=== PATIENT | female | born 1955 | race Caucasian/White ===

== ENCOUNTER 2016-10-25 12:48 | Outpatient (CLI) ==
[2013-08-09 00:02] VITALS: BMI 39.4
[2016-10-25 13:06] LABS: BASOPHILS % (AUTO) 0.8 % (0.0-3.0); EOSINOPHILS # (AUTO) 0.2 K/ul (0.0-0.7); HEMATOCRIT 38.4 % (37.0-47.0); HEMOGLOBIN 13.8 g/dl (12.0-16.0); IMMATURE GRANULOCYTE % (AUTO) 0.2 % (0.0-5.0); LYMPHOCYTES # (AUTO) 2.1 K/uL (0.60-3.4); LYMPHOCYTES % (AUTO) 40.8 (10.0-50.0); MEAN CORPUSCULAR HEMOGLOBIN 29.7 pg (27.0-31.0); MEAN CORPUSCULAR HGB CONC 35.9 (31.8-35.4); MEAN CORPUSCULAR VOLUME 82.6 fl (81.0-99.0); MONOCYTES # (AUTO) 0.8 K/uL (0.4-2.0); NEUTROPHILS % (AUTO) 40.2; PLATELET COUNT 255 10^3/uL (140-440); RED BLOOD COUNT 4.65 10^6/ul (4.20-5.40); WHITE BLOOD COUNT 5.07 K/ul (4.6-10.2)
[2016-10-25 13:41] LABS: ALBUMIN 3.8 g/dL (3.4-5.0); ALBUMIN/GLOBULIN RATIO 1.03; BILIRUBIN,TOTAL 0.58 mg/dL (0.00-1.20); CALCIUM 9.9 mg/dL (8.2-10.2); CHOL/HDL RATIO 8.3 (4.5-5.5); CREATININE 0.8 mg/dL (0.60-1.30); TOTAL PROTEIN 7.5 g/dL (6.4-8.2)
== END 2016-10-25 12:49 | disposition home or self-care (01) ==
LOC: LAB 12:48
PROVIDERS: ATTEND Nurse Practitioner Family
DX: L03.115 Cellulitis of right lower limb (principal); E78.1 Pure hyperglyceridemia; I10 Essential (primary) hypertension
CPT/HCPCS: 36415; 80053; 80061; 84443; 85025

== ENCOUNTER 2017-01-18 11:54 | Outpatient (CLI) ==
[2013-08-09 00:02] VITALS: BMI 39.4
== END 2017-01-18 11:55 | disposition home or self-care (01) ==
LOC: LAB 11:54
PROVIDERS: ATTEND Nurse Practitioner Family
DX: J02.9 Acute pharyngitis, unspecified (principal)
CPT/HCPCS: 87651; 87880

== ENCOUNTER 2017-01-21 13:41 | Outpatient (CLI) ==
[2013-08-09 00:02] VITALS: BMI 39.4
--- NOTE | 2017-01-21 14:39 | CT ---
EXAM: CT of the sinuses without contrast History: Chronic sinusitis. Technique: Multiplanar CT images through the sinuses were obtained without the administration of IV contrast Findings: The orbits are intact. Surrounding soft tissues demonstrate no grossly acute findings. The visualized intracranial contents demonstrate no grossly acute findings. No acute fracture or dis location. Minimal mucosal thickening of the inferior right maxillary sinus. Paranasal sinuses are otherwise clear. Mastoid air cells are clear. Nasal septum is bowed to the right. Bilateral ostio meatal units are not occluded. Impression: Minimal right maxillary sinus mucosal thickening. The paranasal sinuses are otherwise clear.
== END 2017-01-21 13:42 | disposition home or self-care (01) ==
LOC: RAD 13:41
PROVIDERS: ATTEND Nurse Practitioner Family
DX: J32.9 Chronic sinusitis, unspecified (principal)

== ENCOUNTER 2017-04-29 09:50 | Outpatient (CLI) ==
[2013-08-09 00:02] VITALS: BMI 39.4
[2017-04-29 10:10] LABS: BASOPHILS # (AUTO) 0.1 K/uL (0-0.2); BASOPHILS % (AUTO) 0.9 % (0.0-3.0); EOSINOPHILS # (AUTO) 0.2 K/ul (0.0-0.7); EOSINOPHILS % (AUTO) 3.4 % (0.0-7.0); HEMATOCRIT 38.4 % (37.0-47.0); HEMOGLOBIN 13.8 g/dl (12.0-16.0); IMMATURE GRANULOCYTE % (AUTO) 0.4 % (0.0-5.0); LYMPHOCYTES # (AUTO) 2.7 K/uL (0.60-3.4); LYMPHOCYTES % (AUTO) 49.5 (10.0-50.0); MEAN CORPUSCULAR HEMOGLOBIN 30.1 pg (27.0-31.0); MEAN CORPUSCULAR HGB CONC 35.9 (31.8-35.4); MEAN CORPUSCULAR VOLUME 83.7 fl (81.0-99.0); MONOCYTES # (AUTO) 0.5 K/uL (0.4-2.0); MONOCYTES % (AUTO) 9.3 (0-10); NEUTROPHILS % (AUTO) 36.5; PLATELET COUNT 255 10^3/uL (140-440); RED BLOOD COUNT 4.59 10^6/ul (4.20-5.40); WHITE BLOOD COUNT 5.35 K/ul (4.6-10.2)
[2017-04-29 10:53] LABS: ALBUMIN 3.7 g/dL (3.4-5.0); ALBUMIN/GLOBULIN RATIO 1.12; ANION GAP 12.4; BILIRUBIN,TOTAL 0.34 mg/dL (0.00-1.20); BUN/CREATININE RATIO 20.51; CALCIUM 9.5 mg/dL (8.2-10.2); CHOL/HDL RATIO 7.6 (4.5-5.5); CREATININE 0.78 mg/dL (0.60-1.30); POTASSIUM 4.4 mmol/L (3.5-5.10)
== END 2017-04-29 09:51 | disposition home or self-care (01) ==
LOC: LAB 09:50
PROVIDERS: ATTEND Nurse Practitioner Family
DX: E55.9 Vitamin D deficiency, unspecified (principal); E78.1 Pure hyperglyceridemia; I10 Essential (primary) hypertension
CPT/HCPCS: 36415; 80053; 80061; 82306; 85025

== ENCOUNTER 2017-10-28 09:09 | Outpatient (CLI) ==
[2013-08-09 00:02] VITALS: BMI 39.4
--- NOTE | 2017-10-28 09:44 | DI ---
Exam: Five x-rays of the lumbar spine. Comparison: MRI 03/11/2014. Reason for exam: Back pain. FINDINGS: No acute fracture or listhesis. The vertebral body heights are relatively well maintained . There is multilevel degenerative disease with intervertebral body disc space height narrowing and osteophyte formation with facet hypertrophy. There is relative preservation of the lumbar lordotic cu rve. The partially imaged left sided hip arthroplasty. There is mild levoscoliosis of the thoracolum bar spine Impression: Multilevel degenerative disease without evidence of acute fracture or listhesis
== END 2017-10-28 09:10 | disposition home or self-care (01) ==
LOC: RAD 09:09
PROVIDERS: ATTEND Nurse Practitioner Family
DX: E78.1 Pure hyperglyceridemia (principal); I10 Essential (primary) hypertension; E55.9 Vitamin D deficiency, unspecified; M51.16 Intervertebral disc disorders with radiculopathy, lumbar region; M51.17 Intervertebral disc disorders with radiculopathy, lumbosacral region; M47.816 Spondylosis without myelopathy or radiculopathy, lumbar region; M47.817 Spondylosis without myelopathy or radiculopathy, lumbosacral region; M51.36 Other intervertebral disc degeneration, lumbar region; M51.37 Other intervertebral disc degeneration, lumbosacral region
CPT/HCPCS: 36415; 80053; 80061; 82306; 84443; 85025

== ENCOUNTER 2017-11-05 07:52 | Outpatient (CLI) ==
[2013-08-09 00:02] VITALS: BMI 39.4
--- NOTE | 2017-11-05 09:48 | CT ---
EXAM: CT right hand with contrast. HISTORY: Unspecified disorder of synovium and tendon. Outpatient.. TECHNIQUE: Transaxial CT performed through the level of the right hand 2 mm slice thickness after in travenous contrast administration. Orthogonal coronal and sagittal reformatted imaging obtained. Co mparison none. FINDINGS: The alignment of the right hand shows no dislocation. Osteopenia. Interphalangeal joint osteoarthrosis. No bone erosions. Some minimal osteoarthrosis involving the metacarpal phalangeal j oints as well. Mild osteoarthrosis first carpometacarpal joint. More pronounced osteoarthrosis scap hoid trapezium trapezoid articulation. Radiocarpal joint osteoarthrosis. Intraosseous cyst/ganglion formation lunate as well as scaphoid and capitate. Ununited fracture ulnar styloid. Otherwise no a cute fracture. Question radiocarpal joint effusion. Given the attenuation there may be superimposed synovitis as we ll. Wrist held in pronation with tendinosis/tenosynovitis and suspicion for high-grade partial teari ng of the extensor carpi ulnaris tendon. No abnormal soft tissue gas.. Specifically a marker was p laced over the palmar soft tissues at the third metacarpal phalangeal joint level. Trace third metac arpal phalangeal joint effusion may be present. The flexor digitorum tendons of the third digit basilia sly intact without full-thickness disruption. Questionable focal tenosynovitis. There is additional ly some suspected fluid signal intensity/edema within the carpal tunnel and along its exit. IMPRESSION: Osteopenia. Osteoarthrosis as described. No definitive bone erosions. Ununited fracture ulnar styloid suspected. No acute fracture identified. Question radiocarpal joint effusion. Question superimposed synovitis.. Suspected fluid signal inten sity/edema within the carpal tunnel its along its exit. This may reflect flexor tenosynovitis. Wrist held in pronation with tendinosis/tenosynovitis and suspected high-grade partial tearing of the extensor carpi ulnaris tendon. Correlate clinically. Marker placed over the palmar soft tissues at the third metacarpal phalangeal joint level. Trace thi rd metacarpal phalangeal joint effusion. Third flexor digitorum tendons grossly intact without full- thickness disruption/tendon bow stringing.. There may be underlying focal tenosynovitis. Dedicated MRI would be helpful for further characterization if clinically feasible and indicated.
--- NOTE | 2017-11-06 08:16 | MRI ---
EXAM: Lumbar spine MRI without contrast. HISTORY: Lumbago with left sciatica. COMPARISON: Lumbar spine radiographs 10/28/2017 and lumbar spine MRI 03/11/2014. TECHNIQUE: Multiplanar, multisequence MR images were acquired of the lumbar spine without contrast. FINDINGS: Five non-rib bearing lumbar vertebra are present. There is stable mild 14 degrees thoraco lumbar levoscoliosis centered at T12-L1. There is minor chronic anterior wedging of T11 and a mild c hronic right anterior wedge compression deformity of L1 with irregular concavity of the superior endp late and a chronic Schmorl's node unchanged from previously. The lumbar vertebra are normal in heigh t and intrinsic bone marrow signal. Benign intraosseous hemangiomas are present at T12 and L2. Ther e is a mild diffuse disc osteophyte complex at L2-3 with stable irregularity of the left anterolatera l endplates and modic type two endplate changes and new irregular concavity of the right lateral endp lates greatest involving the right lateral superior endplate of L3 with modic type 1 endplate changes . Conus medullaris ends at L1-2 and has normal signal intensity. 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 There is an elongated right lobe of the liver that measures at least 18 cm in length. The partially visualized spleen and left kidney are unremarkable. A simple lower pole right renal cyst is present. There are no paravertebral masses. There is bilateral sacroiliac osteoarthrosis. T11-12: There is a minor diffuse disc osteophyte complex that is asymmetric to the left which minima lly indents the right cord and effaces the left lateral recess. Left hypertrophic facet arthropathy is present and there is mild bilateral foraminal stenosis. T12-L1: There is a minor spondylotic disc bulge that is asymmetric to the right with small right far lateral endplate osteophytes. There is no central canal stenosis or foraminal stenosis. L1-2: There is a minor disc bulge that is considered physiologic. There is no central canal stenosi s or foraminal stenosis. L2-3: There is a mild disc bulge and bilateral facet arthropathy and ligamentum flavum hypertrophy. This causes minor right and mild left neural foraminal stenosis. L3-4: There is a minor disc bulge with marginal osteophytes that is asymmetric to the left. Compared to previously, mild bright STIR signal edema along the left anterolateral endplates has resolved and there are now modic type 2 endplate changes. Mild bilateral facet and ligamentum flavum hypertrophy is present which produces triangulation of the thecal sac and mild left neural foraminal stenosis. L4-5: There is a mild disc bulge and moderate left greater than right hypertrophic facet arthropathy and bilateral ligamentum flavum hypertrophy. There is irregularity of the articular surfaces of bot h facet joints, degenerative cysts and bilateral facet effusions, greater on the left. These finding s have progressed compared to previously and cause mild to moderate central canal stenosis and mild t o moderate bilateral foraminal stenosis. AP diameter of the thecal sac is 7 mm. The bulging disc enc roaches on both L4 nerves exiting the neural foramina, greater on the left. L5-S1: There is a minor disc bulge and moderate bilateral facet arthropathy with ankylosis of both fa cet joints. There is minor left greater than right foraminal stenosis. IMPRESSION: 1. Mild lumbar degenerative spondylosis which has mildly progressed compared to the 03/11/2014 MRI. 2. Mild discogenic disease L2-3 with new modic type 1 right lateral endplate changes. 3. Moderate bilateral hypertrophic facet arthropathy L4-5, greater on the left which has progressed compared to previously and there are now bilateral facet effusions, greater on the lef these findings may be due to accelerated degenerative changes due to increased stress or motion or chronic facet sy novitis. 4. No change ankylosis bilateral L5-S1 facet joints. 5. Stable mild chronic right anterior wedge compression deformity T12. 6. Bilateral sacroiliac osteoarthrosis.
== END 2017-11-05 07:53 | disposition home or self-care (01) ==
LOC: RAD 07:52
PROVIDERS: ATTEND Nurse Practitioner Family
DX: M67.90 Unspecified disorder of synovium and tendon, unspecified site (principal); M54.42 Lumbago with sciatica, left side; G89.29 Other chronic pain

== ENCOUNTER 2018-02-04 10:18 | Outpatient (CLI) | payer OTHER ==
[2013-08-09 00:02] VITALS: BMI 39.4
== END 2018-02-04 10:19 | disposition home or self-care (01) ==
LOC: RHC-LAB 10:18
PROVIDERS: ATTEND Nurse Practitioner Family
DX: R25.2 Cramp and spasm (principal)
CPT/HCPCS: 36415; 84132

== ENCOUNTER 2018-04-01 12:39 | Outpatient (CLI) ==
[2013-08-09 00:02] VITALS: BMI 39.4
--- NOTE | 2018-04-01 14:57 | MRI ---
EXAM: MRI of the right knee without contrast COMPARISON: Right knee radiographs 06/27/2016. HISTORY: Right knee pain medially. TECHNIQUE: Multiplanar noncontrast MR images of the right knee were acquired using a 1.2 Ester magne t. Several sequences are moderately limited by patient motion artifact, most pronounced on the sagitt al proton density sequence. FINDINGS: There is intrasubstance degeneration of the lateral meniscus without a surfacing tear. Th ere is intrasubstance degeneration of the medial meniscus with overall diminished size of the meniscu s with irregularity the free edge consistent with a degenerative type tear with a radial component in volving the free edge extending peripherally at that level. Extrusion of the body related to loss of hoop containment. There is a 3.2 x 2.3 x 1.5 cm multi septated T2 hyperintense lesion extending siddhartha ng the posterior aspect of the joint capsule into the popliteal fossa with component extending deep v ia a rent in the posterior joint capsule and along the margin of the posterior cruciate ligament favo ring a complex ganglion/synovial cyst. A component extends along the myotendinous junction of the po pliteus. Intermediate signal within the substance of the anterior cruciate ligament suggesting scarring relate d to a chronic sprain. Intact fibers identified. Spurring of the tibial spines anteriorly. The pos terior cruciate ligament is intact. Chronic sprain with scarring of the medial collateral ligament. The lateral collateral ligament complex and posterolateral corner ligaments are intact. Mild patell ar/quadriceps tendinosis and enthesopathy. No significant subluxation of the patella. Subcutaneous edema anteriorly. There are marginal osteophytes in all three compartments of the knee with medial and lateral notch os teophytes. Full-thickness cartilage defects along the patella with subchondral cystic change. Mild thinning of the cartilage of the trochlear groove. Moderate to severe thinning of the cartilage in t he medial compartment. Thinning and ulceration of the cartilage along the medial weightbearing surfa ce of the lateral tibial plateau measuring 0.6 cm extent. No evidence of an acute fracture or osteom yelitis. Minimal joint effusion. No popliteal cyst. IMPRESSION: 1. Tricompartmental osteoarthrosis with most severe changes involving the medial and patellofemoral compartments. 2. Minimal joint effusion. Complex multi septated T2 hyperintense lesion posteriorly within the pop liteal fossa suggesting a ganglion/synovial cyst with suspected articular communication via a rent in the posterior joint capsule. 3. Chronic sprains with scarring of the anterior cruciate and medial collateral ligaments. 4. Tear of the posterior horn/root of the medial meniscus as described. 5. Patellar/quadriceps tendinosis and enthesopathy. Subcutaneous edema.
== END 2018-04-01 12:40 | disposition home or self-care (01) ==
LOC: RAD 12:39
PROVIDERS: ATTEND Nurse Practitioner Family
DX: M25.561 Pain in right knee (principal)

== ENCOUNTER 2018-05-05 08:29 | Outpatient (CLI) ==
[2013-08-09 00:02] VITALS: BMI 39.4
== END 2018-05-05 08:30 | disposition home or self-care (01) ==
LOC: LAB 08:29
PROVIDERS: ATTEND Nurse Practitioner Family
DX: E55.9 Vitamin D deficiency, unspecified (principal); E78.1 Pure hyperglyceridemia; I10 Essential (primary) hypertension
CPT/HCPCS: 36415; 80053; 80061; 82306; 85025

== ENCOUNTER 2018-05-22 13:00 | Outpatient (RCR) ==
[2013-08-09 00:02] VITALS: BMI 39.4
--- NOTE | 2018-05-19 15:01 | RS.OPPTEV2 ---
Date of Note: 05/19/18 Visit #: 1 Date of Evaluation: 05/19/18 Payer Source: Medicaid Surgery Performed?: Yes Date of Procedure: 05/06/18 Treatment Diagnosis: Right knee pain, stiffness, s/p right knee partial medial meniscectomy History of Condition/Mechanism of Injury:: Patient reports right knee pain began in February when she was working in her garden. States she stood up and lost her balance and did a "drunk dance', but did not fall. Prior Level of Function.....Patient was independent with: ADL's, Self Care, Caregiving, Ambulation/Mobility, Community Integration/Access Functional Limitations: ADL's, Pushing, Pulling, Carrying, Sitting, Standing, Bending, Squatting, Ambulation, Community Access/Integration Current Subjective/complaints:: Patient reports right knee hurts. States she has been icing the knee and propping it up as advised by the doctor's office. States she has not used an assistive device for ambulation. States she has pain with all weight bearing. She has a few steps to get into her home, with a rail. Reports having difficulty with the stairs. She has taken pain medication today. She wears an LORIE wrap type bandage at times for support. Reports her right ankle is always swollen, due to an ankle injury years ago. States she has to walk her dogs outside, down the alley and back to her home. States this is partially up an incline. By the time she is back from walking the dogs, her knee pain is significant. Treatment Side (optional): Right *Precautions: Right knee partial medial meniscectomy Medical History Medical History: Arthritis Surgical History: Hip Replacement Smoking Status: Former smoker Hx Home Medications: gabapentin,zoloft, linzess, lopid, triamterene Patient's Goals: Her goal is to get relief of right knee pain. Pain Assessment - Pain Description Pain Location: right knee Pain Description: "it hurts" Current Pain Intensity: not quantified Worst Pain Intensity: 9/10 Functional Outcome Measure LE Functional Scale: 20 (20/80=75% impairment) - G Codes & Severity Modifier G Codes & Modifier: Mobility current CL. Mobility goal CJ Source of G Code score: LE functional scale Observation - Observation Inspection: right knee presents with two small incisions, one on each side of the patella tendon. No sutures are in place. No drainage, bruising, or redness. Posture: Forward Head, Rounded Shoulders, Increased Lumbar Lordosis, Scoliosis Gait - Gait Pattern Gait Comments: Patient ambulates without an assistive device, with decreased stance on the right LE. Demonstrates decreased right hip and knee flexion during swing phase. - Left Knee ROM Left Knee Extension: -3 degrees from full extension Left Knee Flexion: 125 (degrees AROM) - Right Knee ROM Right Knee Extension: -6 degrees from full extension Right Knee Flexion: 95 (degrees AROM) Knee ROM Limitations: Soft Tissue Tightness, Pain - Left Knee Strength Left Knee Extension: 5 Normal Left Knee Flexion: 5 Normal Comments: Left hip strength 5/5. - Right Knee Strength Right Knee Extension: 4+ Good + Right Knee Flexion: 4+ Good + Comments: Right hip strength 5/5. Palpation Comments:: Patient with reports of tenderness over the distal quadriceps tendon. Also reports tenderness in the posterior/medial aspect of the right knee. Sensation - Sensation Comments: Reports impaired sensation due to nerve damage years ago. Additional Comments: Additional Comments: Right SLR in supine to 45 degrees, left to 50-55 degrees. Bilateral ankle DF to neutral with knee extended. Interventions - Exercise/Activities/Manual Therapy Exercises/Activities: Patient instructed in HEP for ROM of the right knee: heel sides, standing HS curls, and heelcord stretch. Patient does not have a left hand, so she performed the stretch with a black theraband tied in a loop. Also advised her to try a belt fastened in a loop. Patient received ROM to the right knee into flexion and extension. Total minutes of Exercise: 10 mins Manual Therapy: NA HOME EXERCISE PROGRAM: heel sides, standing HS curls, and heelcord stretch. - Charges Timed Code Treatment Minutes: 10 mins Total Treatment Time: 35 mins Procedures billed for this date of service:: EVAL Low EVALUATION COMPLEXITY LEVEL EVALUATION COMPLEXITY LEVEL: HISTORY: Low, EXAM OF BODY SYSTEMS: Low, CLINICAL PRESENTATION: Low, CLINICAL DECISION MAKING: Low Assessment Assessment: Ms. Ortega presents to therapy 13 days s/p right knee arthroscopic partial medial meniscectomy. She demonstrates limited right knee AROM, and tight posterior LE muscles. She reports pain with all weight bearing, including standing to perform ADL's and ambulation. She exhibits good potential to benefit from modalities to reduce pain and exercises to regain functional right knee AROM. Patient Education: Education of diagnosis, Body/Joint mechanics, Home Exercise Program, Home Safety, Activity Modification, Education of Plan of Care Rehab Potential: Good Short Term Goals Goal #1: Patient independent and compliant with HEP. Goal to be met by: 06/02/18 Goal #2: Right knee AROM -2 to 110 degrees flexion. Goal to be met by: 06/02/18 Goal #3: Right SLR equal to the left. Goal to be met by: 06/02/18 [facility] Goals Goal #1: Patient knows HEP and to continue ex's to maintain functional level at D/C. Goal to be met by: 06/23/18 Goal #2: Score on LE functional scale improved to 39% impairment or less. Goal to be met by: 06/23/18 Goal #3: Patient able to ambulate functional community distances w/ min. knee pain. Goal to be met by: 06/23/18 Goal #4: Patient able to work in her garden with minimal knee discomfort. Goal to be met by: 06/23/18 Plan - Treatment to be Provided Procedures: Therapeutic Exercises, Therapeutic Activity, Manual Therapy, Patient Education Modalities: Electrical Stimulation, Cryotherapy, Hot Packs - Treatment Plan Frequency: 2 X week Duration: 4 weeks ORDER # VISITS AND/OR THROUGH DATE: 06/23/18 - Treatment Code (1) Knee pain Code(s): M25.569 - PAIN IN UNSPECIFIED KNEE Qualifiers: Chronicity: acute Laterality: right Qualified Code(s): M25.561 - Pain in right knee (2) Knee stiffness Qualifiers: Laterality: right Qualified Code(s): M25.661 - Stiffness of right knee, not elsewhere classified (3) Gait abnormality Code(s): R26.9 - UNSPECIFIED ABNORMALITIES OF GAIT AND MOBILITY Comments: Rs6.9 (4) Acute medial meniscus tear of right knee Code(s): S83.241A - OTH TEAR OF MEDIAL MENISCUS, CURRENT INJURY, R KNEE, INIT Qualifiers: Encounter type: subsequent encounter Qualified Code(s): S83.241D - Other tear of medial meniscus, current injury, right knee, subsequent encounter (5) S/P arthroscopic partial medial meniscectomy Code(s): Z98.890 - OTHER SPECIFIED POSTPROCEDURAL STATES Comments: Z89.890 right knee
--- NOTE | 2018-05-27 10:02 | RS.OPPTDN ---
Subjective Date of Note: 05/22/18 Visit #: 2 Date of Evaluation: 05/19/18 Payer Source: Medicaid Treatment Diagnosis: Right knee pain, stiffness, s/p right knee partial medial meniscectomy Current Subjective/complaints:: Patient says she is really sore at the medial scope site. She admits to using ice at home for pain relief and uses Ibuprofen , which helps. *Precautions: Right knee partial medial meniscectomy - Treatment Modality: Electrical Stim Unattended Parameters/Method Applied: hivolt 4 small pads @ 140 pk volts cross current x 15 mins to the R knee Patient Position: Supine Interventions - Exercise/Activities/Manual Therapy Exercises/Activities: Patient receives PROM to the R knee and heel cord stretching. Initiated patellar mobs, but she is very sensitive to palpation at the patella. She performs QS, SAQ 1 1/2#, DF and ham curls with red tband , hip abd with knee extended and hookling with red tband x 10. Patient sits for LAQ after modalities. Total minutes of Exercise: 25 Manual Therapy: NA HOME EXERCISE PROGRAM: heel sides, standing HS curls, and heelcord stretch. - Charges Timed Code Treatment Minutes: 25 Total Treatment Time: 45 Procedures billed for this date of service:: cp, estim (un), ex2 Assessment: Patient beginning PT exercises this week, motivated to gain strength and reduce pain level. She is performing HEP and seemed to jeremiah all therex. She has mild tenderness and swelling to the medial scope site. Patient Education: Education of diagnosis, Body/Joint mechanics, Home Exercise Program, Education of Plan of Care Patient demonstrates compliance with HEP?: Yes Short Term Goals Goal #1: Patient independent and compliant with HEP. Goal to be met by: 06/02/18 Progress towards Goal:: Progressing Goal #2: Right knee AROM -2 to 110 degrees flexion. Goal to be met by: 06/02/18 Goal #3: Right SLR equal to the left. Goal to be met by: 06/02/18 Senior Care Goals Goal #1: Patient knows HEP and to continue ex's to maintain functional level at D/C. Goal to be met by: 06/23/18 Goal #2: Score on LE functional scale improved to 39% impairment or less. Goal to be met by: 06/23/18 Goal #3: Patient able to ambulate functional community distances w/ min. knee pain. Goal to be met by: 06/23/18 Goal #4: Patient able to work in her garden with minimal knee discomfort. Goal to be met by: 06/23/18 Plan PLAN OF CARE EXPIRES ON:: 06/23/18 ORDER # VISITS AND/OR THROUGH DATE: 06/23/18 PLAN: Continue for therex ROM, strengthening to the R knee and modalities to reduce pain.
== END 2018-05-23 23:59 ==
PROVIDERS: ATTEND Orthopaedic Surgery
DX: S83.241D Other tear of medial meniscus, current injury, right knee, subsequent encounter (principal); M25.561 Pain in right knee; M25.661 Stiffness of right knee, not elsewhere classified; R26.9 Unspecified abnormalities of gait and mobility; Z98.890 Other specified postprocedural states

== ENCOUNTER 2018-06-12 11:00 | Outpatient (RCR) | payer OTHER ==
[2017-11-05 07:59] VITALS: BMI 39.4
--- NOTE | 2018-05-27 14:30 | RS.OPPTDN ---
Subjective Date of Note: 05/27/18 Visit #: 3 Date of Evaluation: 05/19/18 Payer Source: Medicaid Treatment Diagnosis: Right knee pain, stiffness, s/p right knee partial medial meniscectomy Current Subjective/complaints:: Patient says she had a little soreness to her knee with exercises, but estim reduced it at last session. She says she uses ice at home too, but still has tenderness to touch the inside of her knee. *Precautions: Right knee partial medial meniscectomy - Treatment Modality: Electrical Stim Unattended Parameters/Method Applied: hivolt 4 small pads crossed to the R knee after therex x 20 mins @ 145-160pk volts Patient Position: Supine - Heat/Cryotherapy Treatment: Cryotherapy Interventions - Exercise/Activities/Manual Therapy Exercises/Activities: Patient receives PROM to the R knee, HS and heel cord stretching. She performs QS, SAQ 1 1/2#, DF and ham curls with red tband , hip abd with knee extended and hookling with red tband x 10. Added SLR 2x10, bilateral SAQ with 1 1/2# and ball at ankle for isometrics. Patient sits for LAQ after modalities. Total minutes of Exercise: 28 Manual Therapy: NA HOME EXERCISE PROGRAM: heel sides, standing HS curls, and heelcord stretch. - Charges Timed Code Treatment Minutes: 28 Total Treatment Time: 48 Procedures billed for this date of service:: cp, estim (un), ex2 Assessment: Patient continues with tenderness to light to mild palpation. She is able to perform all therex well. She is motivated to continue progressing therex. Patient Education: Education of diagnosis, Body/Joint mechanics, Home Exercise Program Patient demonstrates compliance with HEP?: Yes Short Term Goals Goal #1: Patient independent and compliant with HEP. Goal to be met by: 06/02/18 Progress towards Goal:: Progressing Goal #2: Right knee AROM -2 to 110 degrees flexion. Goal to be met by: 06/02/18 Progress towards Goal:: Progressing Goal #3: Right SLR equal to the left. Goal to be met by: 06/02/18 Religion Teacher Goals Goal #1: Patient knows HEP and to continue ex's to maintain functional level at D/C. Goal to be met by: 06/23/18 Goal #2: Score on LE functional scale improved to 39% impairment or less. Goal to be met by: 06/23/18 Goal #3: Patient able to ambulate functional community distances w/ min. knee pain. Goal to be met by: 06/23/18 Goal #4: Patient able to work in her garden with minimal knee discomfort. Goal to be met by: 06/23/18 Plan PLAN OF CARE EXPIRES ON:: 06/23/18 ORDER # VISITS AND/OR THROUGH DATE: 06/23/18 PLAN: Continue BIW progressing therex and reducing R knee pain
--- NOTE | 2018-06-03 12:00 | RS.OPPTDN ---
Subjective Date of Note: 06/03/18 Visit #: 5 Date of Evaluation: 05/19/18 Payer Source: Medicaid Treatment Diagnosis: Right knee pain, stiffness, s/p right knee partial medial meniscectomy Current Subjective/complaints:: Patient says she has had increased back and R knee pain due to leaning over and kneeling down while giving dog a bath. She says that while walking, she discovers her knee and ankle bother her while turning her R leg outward, she says turning it inward (neutral) takes her pain away. *Precautions: Right knee partial medial meniscectomy - Treatment Modality: Electrical Stim Unattended Parameters/Method Applied: hivolt 4 small pads @ 155-175 pk volts x 20 mins to the R knee after therex Patient Position: Supine - Heat/Cryotherapy Treatment: Cryotherapy Interventions - Exercise/Activities/Manual Therapy Exercises/Activities: Patient receives PROM to the R knee, HS and heel cord stretching. She performs QS, SAQ progressed to 2#, DF and ham curls progressed to green tband , hip abd with knee extended and hookling progressed to green tband x 10. SLR 2x10, bilateral SAQ with 2# and ball at ankle for isometrics. Patient sits for LAQ after modalities. Total minutes of Exercise: 25 Manual Therapy: NA HOME EXERCISE PROGRAM: heel sides, standing HS curls, and heelcord stretch. - Charges Timed Code Treatment Minutes: 25 Total Treatment Time: 45 Procedures billed for this date of service:: cp, estim (un), ex2 Assessment: Patient with elevated back and R knee pain today and yesterday related to giving her dog a bath. She indicates she does have more mobility however and less swelling to the inside knee scope site. Good tolerance to increasing weight with all therex today. Patient Education: Body/Joint mechanics, Education of Plan of Care Patient demonstrates compliance with HEP?: Yes Short Term Goals Goal #1: Patient independent and compliant with HEP. Goal to be met by: 06/02/18 Progress towards Goal:: Progressing Goal #2: Right knee AROM -2 to 110 degrees flexion. Goal to be met by: 06/02/18 Progress towards Goal:: Partially Met Comments:: met flexion goal Goal #3: Right SLR equal to the left. Goal to be met by: 06/02/18 Progress towards Goal:: Progressing Small Products I Assembler Goals Goal #1: Patient knows HEP and to continue ex's to maintain functional level at D/C. Goal to be met by: 06/23/18 Goal #2: Score on LE functional scale improved to 39% impairment or less. Goal to be met by: 06/23/18 Goal #3: Patient able to ambulate functional community distances w/ min. knee pain. Goal to be met by: 06/23/18 Goal #4: Patient able to work in her garden with minimal knee discomfort. Goal to be met by: 06/23/18 Plan PLAN OF CARE EXPIRES ON:: 06/23/18 ORDER # VISITS AND/OR THROUGH DATE: 06/23/18 PLAN: Continue progressive therex to improve extension and strength to the R knee.
--- NOTE | 2018-06-05 11:01 | RS.OPPTDN ---
Subjective Date of Note: 05/29/18 Visit #: 4 Date of Evaluation: 05/19/18 Payer Source: Medicaid Treatment Diagnosis: Right knee pain, stiffness, s/p right knee partial medial meniscectomy Current Subjective/complaints:: Patient says her knee pain is elevated today. She says she does not know why, but feels it is related to the weather due to other areas hurt. *Precautions: Right knee partial medial meniscectomy Pain Assessment - Pain Description Pain Location: R medial knee - Treatment Modality: Electrical Stim Unattended Parameters/Method Applied: 4 small pads hivolt controlled vertically at the R knee after therex x 20 mins Patient Position: Supine - Heat/Cryotherapy Treatment: Cryotherapy Interventions - Exercise/Activities/Manual Therapy Exercises/Activities: Patient receives PROM to the R knee, HS and heel cord stretching. She performs QS, SAQ 1 1/2#, DF and ham curls with red tband , hip abd with knee extended and hookling with red tband x 10. Patient sits for LAQ after modalities. Reduced therex today due to elevated pain. Total minutes of Exercise: 18 Manual Therapy: NA HOME EXERCISE PROGRAM: heel sides, standing HS curls, and heelcord stretch. - Charges Timed Code Treatment Minutes: 18 Total Treatment Time: 38 Procedures billed for this date of service:: cp, estim (un), ex Assessment: Patient experiencing increased R knee pain as well as througout her back and hip too. She feels this is weather related due to it being generalized. She does have limited toleration for exercises usually performed in the dept., however, this did improve with modalities. Patient Education: Education of diagnosis, Body/Joint mechanics, Home Exercise Program Patient demonstrates compliance with HEP?: Yes Short Term Goals Goal #1: Patient independent and compliant with HEP. Goal to be met by: 06/02/18 Progress towards Goal:: Progressing Goal #2: Right knee AROM -2 to 110 degrees flexion. Goal to be met by: 06/02/18 Progress towards Goal:: Progressing Goal #3: Right SLR equal to the left. Goal to be met by: 06/02/18 Progress towards Goal:: Progressing Civil Engineer In Training Goals Goal #1: Patient knows HEP and to continue ex's to maintain functional level at D/C. Goal to be met by: 06/23/18 Goal #2: Score on LE functional scale improved to 39% impairment or less. Goal to be met by: 06/23/18 Goal #3: Patient able to ambulate functional community distances w/ min. knee pain. Goal to be met by: 06/23/18 Goal #4: Patient able to work in her garden with minimal knee discomfort. Goal to be met by: 06/23/18 Plan PLAN OF CARE EXPIRES ON:: 06/23/18 ORDER # VISITS AND/OR THROUGH DATE: 06/23/18 PLAN: Patient to continue BIW for modalities and therex for the R knee to improve pain and strength.
--- NOTE | 2018-06-10 08:28 | RS.OPPTDN ---
Subjective Date of Note: 06/05/18 Visit #: 6 Date of Evaluation: 05/19/18 Payer Source: Medicaid Treatment Diagnosis: Right knee pain, stiffness, s/p right knee partial medial meniscectomy Current Subjective/complaints:: Patient c/o stiffness today to the R knee and also to the L hip. She says she works in her garden a lot and has been picking apples and preparing them for sauce. She says she continues to be sore ( pointing to the entire medial aspect and upper thigh) at the knee. She admits to forgetting to take her pain meds this morning and can tell her pain is rising while here. *Precautions: Right knee partial medial meniscectomy - Treatment Modality: Electrical Stim Unattended Parameters/Method Applied: hivolt 4 small pads to the R knee @ 135 pk volts placed vertically x 20 mins after therex. Patient Position: Supine - Heat/Cryotherapy Treatment: Cryotherapy Interventions - Exercise/Activities/Manual Therapy Exercises/Activities: Patient continues with PROM to the R knee, HS and heel cord stretching. She performs QS, SAQ increased to 2#, DF and ham curls with green tband , hip abd with knee extended and hooklying progressed to green tband 2 x 10. SLR 2x10. Patient sits for LAQ after modalities. Began stationary bike for/retro x 3 mins. Prompts for direction and to begin slowly. Total minutes of Exercise: 24 Manual Therapy: NA HOME EXERCISE PROGRAM: heel sides, standing HS curls, and heelcord stretch. - Charges Timed Code Treatment Minutes: 24 Total Treatment Time: 44 Procedures billed for this date of service:: cp, estim (un), ex2 Assessment: Patient with increased stiffness to the R knee following garden activities. She did take her pain meds while taking a rest from exercises in the dept in preps for trying exercise bike. She should further improve with progressed strengthening. Patient Education: Home Exercise Program, Education of Plan of Care Patient demonstrates compliance with HEP?: Yes Short Term Goals Goal #1: Patient independent and compliant with HEP. Goal to be met by: 06/02/18 Progress towards Goal:: Progressing Goal #2: Right knee AROM -2 to 110 degrees flexion. Goal to be met by: 06/02/18 Progress towards Goal:: Progressing Goal #3: Right SLR equal to the left. Goal to be met by: 06/02/18 Progress towards Goal:: Progressing News Cameraman Goals Goal #1: Patient knows HEP and to continue ex's to maintain functional level at D/C. Goal to be met by: 06/23/18 Goal #2: Score on LE functional scale improved to 39% impairment or less. Goal to be met by: 06/23/18 Goal #3: Patient able to ambulate functional community distances w/ min. knee pain. Goal to be met by: 06/23/18 Goal #4: Patient able to work in her garden with minimal knee discomfort. Goal to be met by: 06/23/18 Plan PLAN OF CARE EXPIRES ON:: 06/23/18 ORDER # VISITS AND/OR THROUGH DATE: 06/23/18 PLAN: Continue x 2 more sessions
--- NOTE | 2018-06-10 08:49 | RS.OPPTDN ---
Subjective Date of Note: 06/09/18 Visit #: 7 Date of Evaluation: 05/19/18 Payer Source: Medicaid Treatment Diagnosis: Right knee pain, stiffness, s/p right knee partial medial meniscectomy Current Subjective/complaints:: Patient says she felt the bike bothered her L hip, but did not hurt her knees. *Precautions: Right knee partial medial meniscectomy - Treatment Modality: Electrical Stim Unattended Parameters/Method Applied: hivolt 4 small pads crossed over the R knee after therex @ 155 pk volts x 20 mins Patient Position: Supine - Heat/Cryotherapy Treatment: Cryotherapy Interventions - Exercise/Activities/Manual Therapy Exercises/Activities: Patient continues with HS and heel cord stretching. She performs QS, SAQ increased to 2#, DF and ham curls with green tband , hip abd with knee extended and hooklying progressed to green tband 2 x 10. SLR 2x10. Patient sits for LAQ after modalities. continued with stationary bike for/ retro x 3 mins. (not in total time) Total minutes of Exercise: 24 Manual Therapy: NA HOME EXERCISE PROGRAM: heel sides, standing HS curls, and heelcord stretch. - Charges Timed Code Treatment Minutes: 24 Total Treatment Time: 46 Procedures billed for this date of service:: cp, estim (un), ex2 Assessment: Patient able to progress with weights today and demo less swelling and tenderness to the R medial aspect of the knee. She is able to work on stationary bike with no difficulty involving her knee and appeared smoother in motion compared to her first time using it. Patient Education: Home Exercise Program, Education of Plan of Care Patient demonstrates compliance with HEP?: Yes Short Term Goals Goal #1: Patient independent and compliant with HEP. Goal to be met by: 06/02/18 Progress towards Goal:: Progressing Goal #2: Right knee AROM -2 to 110 degrees flexion. Goal to be met by: 06/02/18 Progress towards Goal:: Progressing Goal #3: Right SLR equal to the left. Goal to be met by: 06/02/18 Progress towards Goal:: Progressing Hooker Up Goals Goal #1: Patient knows HEP and to continue ex's to maintain functional level at D/C. Goal to be met by: 06/23/18 Goal #2: Score on LE functional scale improved to 39% impairment or less. Goal to be met by: 06/23/18 Goal #3: Patient able to ambulate functional community distances w/ min. knee pain. Goal to be met by: 06/23/18 Goal #4: Patient able to work in her garden with minimal knee discomfort. Goal to be met by: 06/23/18 Plan PLAN OF CARE EXPIRES ON:: 06/23/18 ORDER # VISITS AND/OR THROUGH DATE: 06/23/18 PLAN: Patient to continue x 1 more session. Pt to complete Functional Index.
--- NOTE | 2018-06-12 13:46 | RS.OPPTDN ---
Subjective Date of Note: 06/12/18 Visit #: 8 Date of Evaluation: 05/19/18 Payer Source: Medicaid Treatment Diagnosis: Right knee pain, stiffness, s/p right knee partial medial meniscectomy Current Subjective/complaints:: Patient says her hips are both sore from using the stationary bike previous 2 sessions. She asks not to use it today. Denies any elevated pain to the R knee however. She mentions only slight tenderness and mild sorenss to the medial side of the R knee today. Reports she has continued with weedeating and gardening without difficulty. States she can now squat and do so for "a while." *Precautions: Right knee partial medial meniscectomy Pain Assessment - Pain Description Pain Location: medial portion of the R knee - Treatment Modality: Electrical Stim Unattended Parameters/Method Applied: hivolt 4 small pads uncrossed over the R knee after therex @ 170-200 pk volts x 15 mins Patient Position: Supine - Heat/Cryotherapy Treatment: Cryotherapy (with estim) Interventions - Exercise/Activities/Manual Therapy Exercises/Activities: Patient continues with HS and heel cord stretching. She performs QS, SAQ 2#, DF and ham curls with green tband , hip abd with knee extended and hooklying progressed to green tband 2 x 10. SLR 2x10. Bilateral SAQ with 2# on R with ball between ankles. Patient sits for LAQ after modalities. Standing: squatting, heel raises, Assisted patient with LE Index. Total minutes of Exercise: 25 Manual Therapy: NA HOME EXERCISE PROGRAM: heel sides, standing HS curls, and heelcord stretch. - Charges Timed Code Treatment Minutes: 25 Total Treatment Time: 40 Procedures billed for this date of service:: cp, estim (un), ex2 Assessment: Patient progressed with most all levels per Index with the exception of "running/hopping." She demo -3 to 120 degrees and 5/5 MMT for the R LE. Increased hamstring flexibility to now equal the L SLR. Patient Education: Body/Joint mechanics, Home Exercise Program, Education of Plan of Care Patient demonstrates compliance with HEP?: Yes Short Term Goals Goal #1: Patient independent and compliant with HEP. Goal to be met by: 06/02/18 Progress towards Goal:: Met Goal #2: Right knee AROM -2 to 110 degrees flexion. Goal to be met by: 06/02/18 Progress towards Goal:: Partially Met Comments:: -3 to 120 degrees Goal #3: Right SLR equal to the left. Goal to be met by: 06/02/18 Progress towards Goal:: Met Retirement Goals Goal #1: Patient knows HEP and to continue ex's to maintain functional level at D/C. Goal to be met by: 06/23/18 Progress towards goal: Met Goal #2: Score on LE functional scale improved to 39% impairment or less. Goal to be met by: 06/23/18 Progress towards goal: Progressing Comments: 53% Goal #3: Patient able to ambulate functional community distances w/ min. knee pain. Goal to be met by: 06/23/18 Progress towards goal: Met Goal #4: Patient able to work in her garden with minimal knee discomfort. Goal to be met by: 06/23/18 Progress towards goal: Met Plan PLAN OF CARE EXPIRES ON:: 06/23/18 ORDER # VISITS AND/OR THROUGH DATE: 06/23/18 PLAN: Plan to discharge
--- NOTE | 2018-06-17 09:21 | RS.OPPTDC ---
Date of Discharge: 06/12/18 Date of Evaluation: 05/19/18 Number of Visits: 8 Treatment Diagnosis: Right knee pain, stiffness, s/p right knee partial medial meniscectomy Current Complaints/Gains: Karo reports all household activities are significantly easier to perform. She reports only mild tenderness to medial right knee joint. She has resumed working in her garden and weedeating. She is performing her HEP and using ice often. Functional Outcome Measure LE Functional Scale: 38 (38/80=53% impairment) - G Codes & Severity Modifier G Codes & Modifier: Mobility D/C CK. Mobility Goal CJ Source of G Code score: LE functional scale Interventions - Exercise/Activities/Manual Therapy Exercises/Activities: NA Manual Therapy: NA HOME EXERCISE PROGRAM: heel sides, standing HS curls, and heelcord stretch. - Objective Findings Observations,measurements,etc.: Karo demonstrates full right knee AROM. Demos. independence with HEP. - Charges Timed Code Treatment Minutes: NA Total Treatment Time: NA Procedures billed for this date of service:: NA Assessment Assessment: Karo reports improved functional ability and shows full ROM of the right knee. Short Term Goals Goal #1: Patient independent and compliant with HEP. Goal to be met by: 06/02/18 Progress towards Goal:: Met Goal #2: Right knee AROM -2 to 110 degrees flexion. Goal to be met by: 06/02/18 Progress towards Goal:: Partially Met Goal #3: Right SLR equal to the left. Goal to be met by: 06/02/18 Progress towards Goal:: Met Nursing Home Goals Goal #1: Patient knows HEP and to continue ex's to maintain functional level at D/C. Goal to be met by: 06/23/18 Progress towards goal: Met Goal #2: Score on LE functional scale improved to 39% impairment or less. Goal to be met by: 06/23/18 Progress towards goal: Not Met Goal #3: Patient able to ambulate functional community distances w/ min. knee pain. Goal to be met by: 06/23/18 Progress towards goal: Met Goal #4: Patient able to work in her garden with minimal knee discomfort. Goal to be met by: 06/23/18 Progress towards goal: Met Plan Reason for Discharge:: No Further Skilled Therapy Indicated
== END 2018-06-22 23:59 ==
PROVIDERS: ATTEND Orthopaedic Surgery
DX: S83.241A Other tear of medial meniscus, current injury, right knee, initial encounter (principal)

== ENCOUNTER 2018-07-03 09:48 | Outpatient (CLI) | payer OTHER ==
[2017-11-05 07:59] VITALS: BMI 39.4
--- NOTE | 2018-07-03 10:41 | CT ---
EXAM: CT of the left elbow without contrast History: Left elbow pain. Comparison: Left elbow radiograph 10/20/2015. Technique: Multiplanar CT images through the left elbow were obtained without the administration of IV contrast. Findings: No acute fracture or dislocation. There is mild enthesiopathy of the lateral humeral epic ondyle. There is mild to moderate joint space narrowing with marginal sclerosis and osteophyte forma tion. Small olecranon enthesiophyte. No joint effusion. There is a small 2 mm calcification along the distal triceps tendon. Moderate posterior soft tissue swelling at the elbow and extending along the posterior forearm measuring the length of about 10 cm. Evaluation for abscess is limited due to lack of IV contrast. 3 mm possible intra-articular loose body along the medial side of the elbow. Impression: 1. No acute osseous abnormality. 2. Moderate posterior soft tissue swelling could be due to trauma or infection/cellulitis. Evaluati on for abscess is limited due to the lack of contrast administration. 3. 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 4. Mild enthesiopathy of the lateral humeral epicondyle. 5. Small calcification along the distal triceps tendon. 6. Small intra-articular loose body.
== END 2018-07-03 09:49 | disposition home or self-care (01) ==
LOC: RAD 09:48
PROVIDERS: ATTEND Physician Assistant
DX: M24.022 Loose body in left elbow (principal); M25.522 Pain in left elbow

== ENCOUNTER 2018-09-12 | Outpatient (RCR) | END 2018-09-22 23:59 | disposition short-term general hospital (02) ==

== ENCOUNTER 2018-09-17 | Outpatient (RCR) | END 2018-09-22 23:59 | CPT/HCPCS: 97039 ==

== ENCOUNTER 2018-09-26 10:55 | Outpatient (RCR) ==
[2017-11-05 07:59] VITALS: BMI 39.4
== END 2018-10-23 23:59 ==
PROVIDERS: ATTEND Orthopaedic Surgery
DX: M24.022 Loose body in left elbow (principal); M25.522 Pain in left elbow; M25.622 Stiffness of left elbow, not elsewhere classified; Z98.890 Other specified postprocedural states
CPT/HCPCS: 97039

== ENCOUNTER 2018-09-29 11:00 | Outpatient (RCR) ==
[2017-11-05 07:59] VITALS: BMI 39.4
--- NOTE | 2018-09-24 16:09 | RS.OPPTDN ---
Subjective Date of Note: 09/24/18 Visit #: 4 Number of visits approved by Insurance: [id number] Date of Evaluation: 09/12/18 Payer Source: MEDICARE Treatment Diagnosis: left elbow pain, elbow joint stiffness. Current Subjective/complaints:: Patient says she has had soreness to the L shoulder. Reports "They must have done something with it because it has hurt ever since." She says incision is getting less sensitive (proximally only tender). She states she continues to stretch her arm into extension by using her purse as a weight, but also says she has ankle weights in her garage she can use. She says that she is not taking anything for pain. *Precautions: . - Treatment Modality: Ultrasound Parameters/Method Applied: continuous @ 1.5 w/cm2 x 10 mins medial/lateral elbow and along the incisional area Patient Position: Sitting - Heat/Cryotherapy Treatment: Hot Pack (15 mins to the L elbow/shoulder/biceps in extension stretch position) Interventions - Exercise/Activities/Manual Therapy Exercises/Activities: Patient receives PROM all dir for the L elbow including contract/relax and isometrics followed by stretching for sup/pron/elbow flex/ ext. 2# stretch for sup with dumbell and for elbow extension. Dorsal glides for L elbow mobilization Grades at distal and proximal joints multiple reps cycled with ROM. Elbow distraction for increased ROM as well multiple reps. Total exercise: 24 mins Total minutes of Exercise: 24 Manual Therapy: NA HOME EXERCISE PROGRAM: elbow flexion/extension and supination. - Charges Timed Code Treatment Minutes: 34 Total Treatment Time: 49 Procedures billed for this date of service:: hp, u/s, ex2 Assessment: Patient experiencing soreness at the L shoulder as well as at the medial and lateral elbow region. Decreased sensitivity noted along the incision. She is demo improved flexibility with elbow extension. She has difficulty jeremiah flexion and extension both with prolonged static stretches. Patient Education: Home Exercise Program, Education of Plan of Care Patient demonstrates compliance with HEP?: Yes Short Term Goals Goal #1: Patient Independent and compliant with HEP Goal to be met by: 09/26/18 Progress towards Goal:: Progressing Goal #2: L elbow AROM -15 degrees extension to 100 degrees flexion Goal to be met by: 09/26/18 Progress towards Goal:: Partially Met Goal #3: Pain to L elbow <5/10 Goal to be met by: 09/26/18 Progress towards Goal:: Met Analytical Research Chemist Goals Goal #1: Patient knows HEP and to continue ex's to maintain functional level at D/C. Goal to be met by: 10/17/18 Goal #2: Score on UE functional scale improved to 19% impairment or less. Goal to be met by: 10/17/18 Goal #3: Left elbow AROM WFL's. Goal to be met by: 10/17/18 Goal #4: Pt able to use left UE as needed with minimal to no elbow pain. Goal to be met by: 10/17/18 Plan Dates of Analytical Research Chemist Goals: 10/17/18 Expiration date of current Insurance Approval:: 10/17/18 PLAN: Patient to continue with progressive ROM for the L UE
--- NOTE | 2018-09-26 16:13 | RS.OPPTDN ---
Subjective Date of Note: 09/26/18 Visit #: 5 Number of visits approved by Insurance: [id number] Date of Evaluation: 09/12/18 Payer Source: MEDICARE Treatment Diagnosis: left elbow pain, elbow joint stiffness. Current Subjective/complaints:: Patient says she is having more soreness to her L shoulder today. Asks to have laser for this and elbow. She says she is very tender to the incision also. *Precautions: . Pain Assessment - Pain Description Pain Location: L shoulder, UT, elbow - Treatment Modality: Class 4 Laser Parameters/Method Applied: Chronic neck pain to the L UT program x 2. Chronic elbow pain and then edema x 2 ea (olecranon, medial and along incision) Treatment Area: 21 mins Patient Position: Sitting - Heat/Cryotherapy Treatment: Hot Pack (on elbow in extension stretch position while lasering the neck/shoulder.) Interventions - Exercise/Activities/Manual Therapy Exercises/Activities: Patient receives PROM (elbow flex/ext during laser) all dir for the L elbow including contract/relax and isometrics followed by stretching for sup/pron/elbow flex/ext. 2# stretch for sup with dumbell and for elbow extension. Dorsal glides for L elbow mobilization Grades at distal and proximal joints multiple reps cycled with ROM. Elbow distraction for increased ROM as well multiple reps,. Holding ball behind head and bilateral flex/extend x 8. Total exercise: 24 mins Total minutes of Exercise: 29 Manual Therapy: NA HOME EXERCISE PROGRAM: elbow flexion/extension and supination. - Charges Timed Code Treatment Minutes: 50 Total Treatment Time: 50 Procedures billed for this date of service:: laser, ex2 Assessment: Patient jeremiah elbow ext to -24 degrees to 97 degrees flexion AA. Improved mobility noted this week, however, pain continues to be an issue at the L shoulder and neck related (she feels) due to nerve block for the elbow. Incision still operator brandy and sensitive. Laser appears to be successful with mobility and pain today. Patient demonstrates compliance with HEP?: Yes Short Term Goals Goal #1: Patient Independent and compliant with HEP Goal to be met by: 09/26/18 Progress towards Goal:: Progressing Goal #2: L elbow AROM -15 degrees extension to 100 degrees flexion Goal to be met by: 09/26/18 Progress towards Goal:: Partially Met Goal #3: Pain to L elbow <5/10 Goal to be met by: 09/26/18 Progress towards Goal:: Met Snf Goals Goal #1: Patient knows HEP and to continue ex's to maintain functional level at D/C. Goal to be met by: 10/17/18 Goal #2: Score on UE functional scale improved to 19% impairment or less. Goal to be met by: 10/17/18 Goal #3: Left elbow AROM WFL's. Goal to be met by: 10/17/18 Goal #4: Pt able to use left UE as needed with minimal to no elbow pain. Goal to be met by: 10/17/18 Plan Dates of Case Management Director Goals: 10/17/18 Expiration date of current Insurance Approval:: 10/17/18 PLAN: Continue with progressive therex to increase ROM to the L UE
--- NOTE | 2018-09-29 12:13 | RS.OPPTDN ---
Subjective Date of Note: 09/29/18 Visit #: 6 Number of visits approved by Insurance: 8 Date of Evaluation: 09/12/18 Payer Source: MEDICARE Treatment Diagnosis: left elbow pain, elbow joint stiffness. Current Subjective/complaints:: Patient requests laser today because she feels it helped her last session. She says her mobility seems to be improving and she continues to work on stretching for flexion/abd. *Precautions: . - Treatment Modality: Class 4 Laser Parameters/Method Applied: Neck chronic pain setting x2 for L UT/shoulder. Elbow chronic pain and edema setting x 1 each to medial elbow and laterally/ along incision and posteriorally. 21 mins total Patient Position: Sitting Interventions - Exercise/Activities/Manual Therapy Exercises/Activities: Patient receives PROM (elbow flex/ext during laser) all dir for the L elbow including contract/relax and isometrics followed by stretching for sup/pron/elbow flex/ext. 2# stretch for sup with dumbell and for elbow extension. Dorsal glides for L elbow mobilization Grades at distal and proximal joints multiple reps cycled with ROM. Elbow distraction for increased ROM as well multiple reps,. Holding ball behind head and bilateral flex/extend x 8. Total exercise: 24 mins Total minutes of Exercise: 31 Manual Therapy: NA HOME EXERCISE PROGRAM: elbow flexion/extension and supination. - Charges Timed Code Treatment Minutes: 52 Total Treatment Time: 52 Procedures billed for this date of service:: laser, ex2 Assessment: Observable increase in elbow flexion and extension today following laser. Passive and active flex/ext during laser today intermittently to improve mobility. She is very compliant with self stretching. Responding well with Laser. She has mild to moderate pain with therex. Patient Education: Education of Plan of Care Patient demonstrates compliance with HEP?: Yes Short Term Goals Goal #1: Patient Independent and compliant with HEP Goal to be met by: 09/26/18 Progress towards Goal:: Progressing Goal #2: L elbow AROM -15 degrees extension to 100 degrees flexion Goal to be met by: 09/26/18 Progress towards Goal:: Partially Met Goal #3: Pain to L elbow <5/10 Goal to be met by: 09/26/18 Progress towards Goal:: Met Detention Goals Goal #1: Patient knows HEP and to continue ex's to maintain functional level at D/C. Goal to be met by: 10/17/18 Goal #2: Score on UE functional scale improved to 19% impairment or less. Goal to be met by: 10/17/18 Goal #3: Left elbow AROM WFL's. Goal to be met by: 10/17/18 Goal #4: Pt able to use left UE as needed with minimal to no elbow pain. Goal to be met by: 10/17/18 Plan Dates of [place] Goals: 10/17/18 Expiration date of current Insurance Approval:: 10/17/18 PLAN: Patient has follow up on Saturday, continue PT x 2 more sessions.
--- NOTE | 2018-10-28 09:57 | RS.OPPTDC ---
Date of Discharge: 09/29/18 Date of Evaluation: 09/12/18 Number of Visits: 6 Treatment Diagnosis: left elbow pain, elbow joint stiffness. Current Complaints/Gains: Ms. Ortega reports her mobility has improved and pain was decreasing, but she complains more about left shoulder pain. She reports having left shoulder pain since her left elbow surgery. Functional Outcome Measure - G Codes & Severity Modifier G Codes & Modifier: NA Source of G Code score: NA Interventions - Exercise/Activities/Manual Therapy Exercises/Activities: Na Manual Therapy: NA HOME EXERCISE PROGRAM: elbow flexion/extension and supination. - Objective Findings Observations,measurements,etc.: on last attended visit, patient demonstrated active elbow ROM of -24 degrees from full extension to 97 degrees flexion. MMT 4+/5 of elbow flexion, extension, and supination. - Charges Timed Code Treatment Minutes: NA Total Treatment Time: NA Procedures billed for this date of service:: NA Assessment Assessment: Mrs. Ortega had remaining visits on plan of care, but she made not conact with our department to continue therapy after following up with her physician. Several salvage determiner goals not met due to not completing plan of care. Patient does have a HEP to continue. Short Term Goals Goal #1: Patient Independent and compliant with HEP Goal to be met by: 09/26/18 Progress towards Goal:: Met Goal #2: L elbow AROM -15 degrees extension to 100 degrees flexion Goal to be met by: 09/26/18 Progress towards Goal:: Not Met Goal #3: Pain to L elbow <5/10 Goal to be met by: 09/26/18 Progress towards Goal:: Met [facility] Goals Goal #1: Patient knows HEP and to continue ex's to maintain functional level at D/C. Goal to be met by: 10/17/18 Progress towards goal: Met Goal #2: Score on UE functional scale improved to 19% impairment or less. Goal to be met by: 10/17/18 Progress towards goal: Not Met Goal #3: Left elbow AROM WFL's. Goal to be met by: 10/17/18 Progress towards goal: Not Met Goal #4: Pt able to use left UE as needed with minimal to no elbow pain. Goal to be met by: 10/17/18 Progress towards goal: Not Met Plan Reason for Discharge:: Self-Discharge (Patient did not continue visits after MD follow up.)
== END 2018-10-23 23:59 ==
PROVIDERS: ATTEND Orthopaedic Surgery
DX: M24.022 Loose body in left elbow (principal); M25.522 Pain in left elbow; M25.662 Stiffness of left knee, not elsewhere classified; Z98.890 Other specified postprocedural states

== ENCOUNTER 2018-11-07 11:53 | Outpatient (CLI) ==
[2017-11-05 07:59] VITALS: BMI 39.4
== END 2018-11-07 11:54 | disposition home or self-care (01) ==
LOC: LAB 11:53
PROVIDERS: ATTEND Nurse Practitioner Family
DX: E78.1 Pure hyperglyceridemia (principal); E55.9 Vitamin D deficiency, unspecified; I10 Essential (primary) hypertension
CPT/HCPCS: 36415; 80053; 80061; 82306; 84443

== ENCOUNTER 2018-11-28 11:50 | Outpatient (CLI) ==
[2017-11-05 07:59] VITALS: BMI 39.4
== END 2018-11-28 11:51 | disposition home or self-care (01) ==
LOC: RHC-LAB 11:50
PROVIDERS: ATTEND Nurse Practitioner Family
DX: M25.50 Pain in unspecified joint (principal)
CPT/HCPCS: 36415; 85651; 86430

== ENCOUNTER 2018-12-09 09:47 | Outpatient (CLI) | payer OTHER ==
[2017-11-05 07:59] VITALS: BMI 39.4
== END 2018-12-09 09:48 | disposition home or self-care (01) ==
LOC: LAB 09:47
PROVIDERS: ATTEND Nurse Practitioner Family
DX: E65 Localized adiposity (principal)
CPT/HCPCS: 81050; 82530

== ENCOUNTER 2019-01-28 10:28 | Outpatient (CLI) ==
[2017-11-05 07:59] VITALS: BMI 39.4
== END 2019-01-28 10:29 | disposition home or self-care (01) ==
LOC: LAB 10:28
PROVIDERS: ATTEND Nurse Practitioner Family
DX: E78.5 Hyperlipidemia, unspecified (principal)
CPT/HCPCS: 36415; 80053; 80061

== ENCOUNTER 2019-02-27 07:39 | Outpatient (CLI) | payer OTHER ==
[2017-11-05 07:59] VITALS: BMI 39.4
--- NOTE | 2019-02-28 21:26 | MRI ---
MRI of the lumbar spine HISTORY: Low back pain. Numbness in left leg after walking. COMPARISON: 11/05/2017. PROCEDURE: Multiplanar, multisequence MRI protocol including sagittal T1-weighted, sagittal T2-weigh marck, sagittal inversion recovery, coronal T2-weighted, axial T1-weighted and axial T2-weighted sequen jackelin. FINDINGS: There are five non-rib bearing lumbar vertebrae. Vertebral alignment redemonstrates an juan roximately 14 degrees thoracolumbar levoscoliosis centered at T12-L1. Vertebral body height demonstr ates minor chronic anterior wedging of T11 and mild chronic right anterior wedge compression deformit y of L1 with irregular concavity of the superior endplate and a chronic Schmorl's node unchanged from the earlier examination. The remaining lumbar vertebrae are normal in height. Marrow signal is wit hin normal limits for age. 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 There is a previously described mild diffuse disc osteophyte complex at L2-3 with stable irr egularity of the left anterolateral endplates and Modic type 2 endplate changes and additional irregu lar concavity of the right lateral endplates greatest involving the right lateral superior endplate o f L3. The intervertebral discs appear normal in height and signal. The conus medullaris appears nor mal in position and configuration and signal. 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 The prevertebral and paraspinous soft tissues are generally stable in appearance. Note is made of a elongation of the right lobe of the liver and of a small cys t arising in the lower pole of the right kidney.. Segmental analysis: T12-L1: There is no significant disc bulge at this level. The spinal canal is not significantly narr owed. The subarticular spaces and lateral recesses are not significantly narrowed. The neural sandra gemma are not stenosed. The conus crosses this level. L1-L2: There is no significant disc bulge at this level. The spinal canal is not significantly narro wed. The subarticular spaces and lateral recesses are not significantly narrowed. The neural forami na are not stenosed. The conus terminates at this level. L2-L3: There is no significant disc bulge at this level. The spinal canal is not significantly narro wed. The subarticular spaces and lateral recesses are not significantly narrowed. There is minor ri ght and mild left foraminal stenosis due to facet arthropathy and disc intrusion. L3-L4: There is a minimal, modestly levocentric disc bulge impressing the ventral thecal sac at this level. There is triangulation of the canal with the AP diameter of the thecal sac in the midline juan roximately 9.3 mm. There is mild narrowing of the subarticular space on the left. There is mild lef t greater than right foraminal stenosis due to facet arthropathy and disc intrusion. L4-L5: There is a mild disc bulge impressing the ventral thecal sac at this level. There is triangul ation of the canal with narrowing of the AP diameter to about 7.5 mm. There is associated narrowing of the subarticular spaces bilaterally. There is mild to moderate bilateral foraminal stenosis due t o facet arthropathy and disc intrusion. There is a left facet effusion. L5-S1: There is a minor disc bulge impressing the ventral thecal sac at this level. The spinal canal is not significantly narrowed. The subarticular spaces and lateral recesses are not significantly n arrowed. There is moderate left greater than right foraminal stenosis due to facet arthropathy and d isc intrusion. IMPRESSION: 1. The lumbar vertebrae are stable in height, alignment and signal when compared to the prior examin ation. There is a previously described 14 degrees levoconvex scoliosis. Additional details are cont ained in the report. 2. There is mild central canal stenosis at L3-4 and moderate central canal stenosis at L4-5 with ass ociated narrowing of the subarticular spaces greater at L4-5. 3. There is minor right and mild left foraminal stenosis at L2-3, mild left greater than right sandra inal stenosis at L3-4, mild to moderate bilateral foraminal stenosis at L4-5 and moderate left greate r than right foraminal stenosis at L5-S1, details provided in the report at the individual levels.
== END 2019-02-27 07:40 | disposition home or self-care (01) ==
LOC: RAD 07:39
PROVIDERS: ATTEND Physician Assistant
DX: M54.5 Low back pain (principal)

== ENCOUNTER 2019-05-09 09:12 | Outpatient (CLI) ==
[2017-11-05 07:59] VITALS: BMI 39.4
== END 2019-05-09 09:13 | disposition home or self-care (01) ==
LOC: LAB 09:12
PROVIDERS: ATTEND Nurse Practitioner Family
DX: E78.5 Hyperlipidemia, unspecified (principal); I10 Essential (primary) hypertension; E55.9 Vitamin D deficiency, unspecified
CPT/HCPCS: 36415; 80053; 80061; 82306; 85025